=== PATIENT | female | born 1940 | race Caucasian/White ===

== ENCOUNTER 2017-09-24 09:52 | Emergency (ER) | payer MEDICARE, OTHER, MEDICAID ==
[2015-10-14 09:31] VITALS: Ht 147.3 cm; Wt 44.5 kg
[~2017-09-24] VITALS: Ht 147.3 cm; Wt 44.5 kg
[~2017-09-24 09:52] MED LIST: ATEN-1 PO; ATEN-65 PO; DIV500ER PO; GABA-549 PO; HYDR12.561 PO; LEVE500T73 PO; LEVE500T75 PO; LEVO50TA86 PO; LOSA50TA72 PO; PHEN50TA PO
[2017-09-24] MEDS ORDERED: CARB1TAB11 PO (10:14)
--- NOTE | 2017-09-24 10:21 | ER Report ---
History and Physical Time Seen By MD: 09:55 Hx. of Stated Complaint: LOWER BACK PAIN RADIATING DOWN TO RIGHT KNEE HPI/ROS CHIEF COMPLAINT: Low back and right leg pain HISTORY OF PRESENT ILLNESS: 76-year-old female long history of chronic low back pain and sciatica pain returns emergency Department today with complaint of low back pain and right lower extremity pain. Patient has no falls has been seen and evaluated as an outpatient has had physical therapy no urinary bladder bowel incontinence and numbness of subtle paresthesia. Is localized lumbar area with radiation down the right leg and to the right knee in the right foot patient has no additional complaints at this time REVIEW OF SYSTEMS: Respiratory: No cough, no dyspnea. Cardiovascular: No chest pain, no palpitations. Gastrointestinal: No vomiting, no abdominal pain. Musculoskeletal: Right low back pain right lower extremity pain Remainder of the 14 system rev: Yes Allergies: Coded Allergies: amoxicillin (Verified Allergy, Severe, rash with small blisters to right arm, 09/24/17) clavulanic acid (Verified Allergy, Severe, rash with small blisters to right arm, 09/24/17) Home Meds Active Scripts Divalproex Sodium (DIVALPROEX SODIUM ER) 500 Mg Tabsr, 500 MG PO , #60 Prov:JAMIE PEDERSON MD 06/19/15 Levetiracetam (LEVETIRACETAM) 500 Mg Tab, 1000 MG PO BID, #60 Prov:JAMIE PEDERSON MD 06/19/15 Reported Medications Carbidopa/Levodopa/Entacapone ([id number] 100 MG) 1 Each Tablet, 1 EACH PO TID 09/24/17 Atenolol (ATENOLOL) 50 Mg Tablet, 25 MG PO QHS, TAB 11/29/15 Levothyroxine Sodium (LEVOTHYROXINE SODIUM) 50 Mcg Tablet, 50 MCG PO QAM 01/31/15 Discontinued Reported Medications Gabapentin (GABAPENTIN) 300 Mg Capsule, 300 MG PO BID Y for TREMORS, CAPSULE 01/12/16 Reviewed Nurses Notes: Yes Old Medical Records Reviewed: Yes Hx Smoking: No Smoking Status: Never Smoker Exposure to Second Hand Smoke?: No Hx Substance Use Disorder: No Hx Alcohol Use: No Constitutional Vital Sign - Last 24 Hours 09/24/17 09/24/17 09/24/17 09/24/17 10:00 10:07 10:12 10:27 Temp 97.0 Pulse 76 77 ? Resp 16 B/P (MAP) 101/71 101/71 (81) Pulse Ox 94 92 O2 Delivery Room Air 09/24/17 09/24/17 09/24/17 10:34 10:42 10:57 Pulse 74 68 B/P (MAP) 129/64 (85) 123/73 (90) Pulse Ox 92 92 Physical Exam General Appearance: [The patient is alert, has no immediate need for airway protection and no current signs of toxicity.] Appears thin cachectic Eyes: Pupils equal and round no injection. Respiratory: Chest is non tender, lungs are clear to auscultation. Cardiac: regular rate and rhythm [ ] Gastrointestinal: Abdomen is soft and non tender, no masses, bowel sounds normal. Musculoskeletal: Pain with extension flexion of the right lower extremity neurovascularly intact Neck is supple and non tender. Extremities have full range of motion and are non tender. Skin: Multiple facial nevi [ ] DIFFERENTIAL DIAGNOSIS: After history and physical exam differential diagnosis was considered for sciatica acute fracture chronic with acute exacerbation of chronic condition pathologic fracture Medical Decision Making ED Course/Re-evaluation ED Course ED clinical course abusive no female with back pain history of kyphoplasty x- rays do confirm a small compression fracture of her L spine we'll start her on by mouth pain medications refer to Dr. Armijo orthopedic spinal surgery for evaluation Decision to Disposition Date: Sep 24, 2017 Decision to Disposition Time: 11:36 Depart Departure Latest Vital Signs Vital Signs Date Time Temp Pulse Resp B/P (MAP) Pulse Ox O2 Delivery O2 Flow Rate FiO2 09/24/17 10:57 68 92 09/24/17 10:42 123/73 (90) 09/24/17 10:00 97.0 16 Room Air Impression: Primary Impression: Compression fracture Condition: Improved Disposition: HOME OR SELF-CARE Referrals: SEDA CRISTINA DO (PCP) KURT ARMIJO MD 5 Days Patient Instructions: Vertebral Compression Fracture (DC) REMY VERGARA MD Sep 24, 2017 10:20
--- NOTE | 2017-09-24 11:08 | RADIOLOGY IMAGING REPORT ---
FACILITY: [facility] PATIENT NAME: Francie Ceja : 1940 MR: [id number] V: [id number] EXAM DATE: ORDERING PHYSICIAN: REMY VERGARA TECHNOLOGIST: Location: [facility] Patient: Francie Ceja : 1940 Visit/Account:[id number] Date of Sevice: 09/24/2017 Exam type: LUMBAR SPINE 2 OR 3 VIEW History: acute on chronic back pain Comparison: None. Findings: There are vertebroplasty changes seen at L1 with a moderate compression fracture. Is osteopenia seen throughout the visualized bones. This mild loss of height of the superior endplates of L2, L3 and L 4. Disc spaces are relatively well-preserved.. No subluxations identified IMPRESSION: 1. Vertebroplasty changes at L1 with moderate compression fracture Mild loss of height along the superior endplates of L2, and L4 of indeterminate age Report Dictated By: Tamie Wilcox MD at 09/24/2017 10:59 AM Report E-Signed By: Tamie Wilcox MD at 09/24/2017 11:02 AM WSN:[email or web address]
[2017-09-24 11:38] VITALS: BP 108/73
== END 2017-09-24 11:52 | disposition home or self-care (01) ==
LOC: ER 10:07
DX: S32.010A Wedge compression fracture of first lumbar vertebra, initial encounter for closed fracture (principal)
CPT/HCPCS: 72100; 99283

== ENCOUNTER 2017-09-28 09:01 | Emergency (ER) | payer MEDICARE, OTHER, MEDICAID ==
[2015-10-14 09:31] VITALS: Ht 147.3 cm; Wt 44.6 kg
[~2017-09-28] VITALS: Ht 147.3 cm; Wt 44.6 kg
[~2017-09-28 09:01] MED LIST changes: +CARB1TAB11 PO
[2017-09-28] MEDS ORDERED: NS(*) 0.9% 1000 ML BAG 1,000 ML IV ONE (09:35)
[2017-09-28 09:41] LABS: PLATELET COUNT, AUTOMATED 207 K/uL (150-450)
--- NOTE | 2017-09-28 10:45 | ER Report ---
History and Physical Time Seen By MD: 09:20 Hx. of Stated Complaint: CONSTIP[ATION X 7 DAYS HPI/ROS CHIEF COMPLAINT: Constipation HISTORY OF PRESENT ILLNESS: Patient is a 76-year-old female who was seen last week in the emergency department and diagnosed with some vertebral compression fractures and placed on oral opiate pain medications. Since that time patient has had difficulty with bowel movements and in fact has not had a bowel movement in the last 8-10 days. She denies any nausea or vomiting. She denies fevers or chills. Patient denies any prior abdominal surgeries. Patient has no difficulty with urination. Appetite has decreased over the past few days. REVIEW OF SYSTEMS: Respiratory: No cough, no dyspnea. Cardiovascular: No chest pain, no palpitations. Gastrointestinal: No vomiting, generalized abdominal cramping and constipation Musculoskeletal: Back pain from a recent injury Allergies: Coded Allergies: amoxicillin (Verified Allergy, Severe, rash with small blisters to right arm, 09/28/17) clavulanic acid (Verified Allergy, Severe, rash with small blisters to right arm, 09/28/17) Home Meds Active Scripts Divalproex Sodium (DIVALPROEX SODIUM ER) 500 Mg Tabsr, 500 MG PO , #60 Prov:JAMIE PEDERSON MD 06/19/15 Levetiracetam (LEVETIRACETAM) 500 Mg Tab, 1000 MG PO BID, #60 Prov:JAMIE PEDERSON MD 06/19/15 Reported Medications Carbidopa/Levodopa/Entacapone ([id number] 100 MG) 1 Each Tablet, 1 EACH PO TID 09/24/17 Atenolol (ATENOLOL) 50 Mg Tablet, 25 MG PO QHS, TAB 11/29/15 Levothyroxine Sodium (LEVOTHYROXINE SODIUM) 50 Mcg Tablet, 50 MCG PO QAM 01/31/15 Discontinued Reported Medications Gabapentin (GABAPENTIN) 300 Mg Capsule, 300 MG PO BID Y for TREMORS, CAPSULE 01/12/16 Hx Smoking: No Smoking Status: Never Smoker Exposure to Second Hand Smoke?: No Hx Substance Use Disorder: No Hx Alcohol Use: No Constitutional Vital Sign - Last 24 Hours 09/28/17 09/28/17 09/28/17 09/28/17 09:08 09:09 10:00 11:43 Temp 98.9 Pulse 89 84 Resp 18 18 B/P (MAP) 150/65 150/65 (93) 124/76 (92) 147/73 (97) Pulse Ox 93 92 O2 Delivery Room Air Room Air Physical Exam General Appearance: The patient is alert, has no immediate need for airway protection and no current signs of toxicity. Eyes: Pupils equal and round no injection. Respiratory: Chest is non tender, lungs are clear to auscultation. Cardiac: regular rate and rhythm Gastrointestinal: Abdomen is soft and non tender, no masses, bowel sounds normal. Musculoskeletal: Neck: Neck is supple and non tender. Extremities have full range of motion and are non tender. Skin: No rashes or lesions. Medical Decision Making Data Points Result Diagram: 09/28/17 0933 09/28/17 0933 Laboratory Hematology Test 09/28/17 09:33 Red Blood Count 4.77 M/uL (4.17-5.56) Mean Corpuscular Volume 84.6 fL (80.0-96.0) Mean Corpuscular Hemoglobin 28.1 pg (26.0-33.0) Mean Corpuscular Hemoglobin Concent 33.1 g/dL (32.0-36.0) Red Cell Distribution Width 13.8 % (11.5-14.5) Mean Platelet Volume 8.4 fL (7.2-11.1) Neutrophils (%) (Auto) 77.2 % (39.4-72.5) Lymphocytes (%) (Auto) 9.9 % (17.6-49.6) Monocytes (%) (Auto) 11.2 % (4.1-12.4) Eosinophils (%) (Auto) 1.3 % (0.4-6.7) Basophils (%) (Auto) 0.4 % (0.3-1.4) Nucleated RBC Relative Count (auto) 0.0 /100WBC Neutrophils # (Auto) 7.0 K/uL (2.0-7.4) Lymphocytes # (Auto) 0.9 K/uL (1.3-3.6) Monocytes # (Auto) 1.0 K/uL (0.3-1.0) Eosinophils # (Auto) 0.1 K/uL (0.0-0.5) Basophils # (Auto) 0.0 K/uL (0.0-0.1) Nucleated RBC Absolute Count (auto) 0.00 K/uL Sodium Level 139 mmol/L (137-145) Potassium Level 3.6 mmol/L (3.5-5.0) Chloride Level 100 mmol/L (98-107) Carbon Dioxide Level 29 mmol/L (22-31) Blood Urea Nitrogen 17 mg/dl (7-18) Creatinine 0.70 mg/dl (0.52-1.04) Glomerular Filtration Rate Calc > 60.0 Random Glucose 96 mg/dl (75-110) Calcium Level 9.3 mg/dl (8.4-10.2) Magnesium Level 2.0 mg/dl (1.7-2.2) Chemistry Test 09/28/17 09:33 White Blood Count 9.0 k/uL (4.5-11.0) Red Blood Count 4.77 M/uL (4.17-5.56) Hemoglobin 13.4 g/dL (12.0-16.0) Hematocrit 40.4 % (34.0-47.0) Mean Corpuscular Volume 84.6 fL (80.0-96.0) Mean Corpuscular Hemoglobin 28.1 pg (26.0-33.0) Mean Corpuscular Hemoglobin Concent 33.1 g/dL (32.0-36.0) Red Cell Distribution Width 13.8 % (11.5-14.5) Platelet Count 207 K/uL (150-450) Mean Platelet Volume 8.4 fL (7.2-11.1) Neutrophils (%) (Auto) 77.2 % (39.4-72.5) Lymphocytes (%) (Auto) 9.9 % (17.6-49.6) Monocytes (%) (Auto) 11.2 % (4.1-12.4) Eosinophils (%) (Auto) 1.3 % (0.4-6.7) Basophils (%) (Auto) 0.4 % (0.3-1.4) Nucleated RBC Relative Count (auto) 0.0 /100WBC Neutrophils # (Auto) 7.0 K/uL (2.0-7.4) Lymphocytes # (Auto) 0.9 K/uL (1.3-3.6) Monocytes # (Auto) 1.0 K/uL (0.3-1.0) Eosinophils # (Auto) 0.1 K/uL (0.0-0.5) Basophils # (Auto) 0.0 K/uL (0.0-0.1) Nucleated RBC Absolute Count (auto) 0.00 K/uL Glomerular Filtration Rate Calc > 60.0 Calcium Level 9.3 mg/dl (8.4-10.2) Magnesium Level 2.0 mg/dl (1.7-2.2) ED Course/Re-evaluation Clinical Indication for ER IV: Hydration, IV Access ED Course 09/28/2017 10:45:09 am Plan at this time will to be check a CBC and electrolytes, also will check acute abdominal series. We'll administer a soapsuds enema. Re-evaluation 09/28/2017 11:32:53 am Patient had bowel movement in the emergency department. We'll have her continue her stool regimen. Decision to Disposition Date: Sep 28, 2017 Decision to Disposition Time: 11:39 Depart Departure Latest Vital Signs Vital Signs Date Time Temp Pulse Resp B/P (MAP) Pulse Ox O2 Delivery O2 Flow Rate FiO2 09/28/17 11:43 84 18 147/73 (97) 92 Room Air 09/28/17 09:08 98.9 Impression: Primary Impression: Constipation by delayed colonic transit Condition: Improved Disposition: HOME OR SELF-CARE Referrals: SEDA CRISTINA DO (PCP) 2 Days Patient Instructions: Constipation (ED) Additional Instructions: Try to decrease the frequency or taking her opiate pain medication Continue your stool softeners Follow-up with Dr. Armijo this Friday for evaluation of your vertebral fracture CHANTEL CRAMER MD Sep 28, 2017 10:45
--- NOTE | 2017-09-28 11:10 | RADIOLOGY IMAGING REPORT ---
FACILITY: [facility] [place] PATIENT NAME: Francie Ceja : 1940 MR: [id number] V: [id number] EXAM DATE: ORDERING PHYSICIAN: CHANTEL CRAMER TECHNOLOGIST: Location: [facility] Patient: Francie Ceja : 1940 Visit/Account:[id number] Date of Sevice: 09/28/2017 Exam type: ACUTE ABDOMEN SERIES 3 VIEW INDICATION: Constipation. COMPARISON: Unavailable FINDINGS: Heart size within normal limits. There is no focal infiltrate or consolidation. No evidence of pneumothorax or pleural effusion. Large volume stool throughout the colon and rectum. No visualized pathologic calcifications. Vertebro plasty/kyphoplasty changes identified within the L1 vertebral body. IMPRESSION: 1. Large volume stool within the colon and rectum. 2. No acute cardiopulmonary findings. Report Dictated By: Paco Tavarez MD at 09/28/2017 11:05 AM Report E-Signed By: Paco Tavarez MD at 09/28/2017 11:06 AM WSN:[id number]
[2017-09-28 11:43] VITALS: BP 147/73
== END 2017-09-28 12:06 | disposition home or self-care (01) ==
LOC: ER 09:19
DX: K59.01 Slow transit constipation (principal)
CPT/HCPCS: 74022; 83735; 85025; 99284; J7030; 82310; 82374; 82435; 82565; 82947; 84132; 84295; 84520; 96360

== ENCOUNTER → 2017-10-13 | Outpatient (CLI) | payer MEDICARE, OTHER, MEDICAID ==
[2015-10-14 09:31] VITALS: BMI 32.8
--- NOTE | 2017-10-13 13:39 | RADIOLOGY IMAGING REPORT ---
FACILITY: [facility] PATIENT NAME: Francie Ceja : 1940 MR: [id number] V: [id number] EXAM DATE: ORDERING PHYSICIAN: SEDA CRISTINA TECHNOLOGIST: Location: [facility] [place] Patient: Francie Ceja : 1940 Visit/Account:[id number] Date of Sevice: 10/13/2017 DEXA Scan Clinical history: Osteoporosis. Comparison: DEXA scan from 11/22/2014. LUMBAR SPINE: The bone mineral density (BMD) measured from L2-L4 correlates with a Z-score of -1 and a T-score of - 3 which is osteoporosis as defined by the World Health Organization. The corresponding risk of fract ure in the lumbar spine is 8 times increased compared with a young adult reference population. This value has decrease by 12.2 % since the prior study. More than 5% change is considered significant. HIP: Bone mineral density (BMD) measured in the LEFT total hip region correlates with a Z-score -1.2 and a T-score of -3.2 which is osteoporosis as defined by the World Health Organization. The correspondin g risk of fracture in the hip is a to 12 times increased compared to a young adult reference populati on. This value has decrease by 28.9 % since the prior study. More than 5% change is considered signi ficant. T score left femoral neck -2.9 Bone mineral density (BMD) measured in the Femoral Neck region measures 0.640 g/cm?. IMPRESSION: 1. Lumbar spine: Acute process. There has been 12.2% decrease in the bone mineral density since the previous exam. 2. Left Total Hip: Osteoporosis. There has been 28.9% decrease in the bone mineral density since th e previous exam. 3. Femoral Neck: Bone Mineral Density is 0.640 g/cm? The next DEXA scan of this patient should include the following sites: L1-L4 and the left hip. FRAX? WHO Fracture Risk Assessment Tool link: <http://www.shef.ac.uk/FRAX/tool.jsp?locationValue=9> PLEASE NOTE: 1) The World Health Organization defines low BMD as follows: T-score Normal > -1 Osteopenia < -1 and > -2.5 Osteoporosis < -2.5 without fractures Established osteoporosis < -2.5 with fractures 2) In general, you may wish to consider: Diagnosis Treatment Follow-up DEXA Normal BMD Prevention 2-3 years Osteopenia Prevention/therapy 1-2 years Osteoporosis Therapy Yearly 3) Fracture risk estimated from the T-score is more accurate for vertebral fractures (often spontane ous) than for hip fractures. Report Dictated By: Tamie Wilcox MD at 10/13/2017 1:33 PM Report E-Signed By: Tamie Wilcox MD at 10/13/2017 1:35 PM WSN:[email or web address]
== END ==
LOC: RAD 01:59
PROVIDERS: ATTEND Family Medicine
DX: M81.0 Age-related osteoporosis without current pathological fracture (principal)
CPT/HCPCS: 77080

== ENCOUNTER → 2017-11-12 | Outpatient (CLI) | payer MEDICARE, OTHER, MEDICAID ==
[2015-10-14 09:31] VITALS: BMI 32.8
[~2017-11-12] MED LIST changes: +DENOSUMAB 60 MG/1 ML SYR SUBQ ONE
[2017-11-12 10:24] VITALS: BP 123/73
== END ==
LOC: SPU 07:42
PROVIDERS: ATTEND Family Medicine
DX: M81.8 Other osteoporosis without current pathological fracture (principal)
CPT/HCPCS: 96372; J0897

== ENCOUNTER 2017-11-24 13:15 | Emergency (ER) | payer MEDICARE, OTHER, MEDICAID ==
[2015-10-14 09:31] VITALS: Wt 44.5 kg
[~2017-11-24 13:15] MED LIST changes: -DENOSUMAB 60 MG/1 ML SYR SUBQ ONE
--- NOTE | 2017-11-24 13:29 | ER Report ---
History and Physical Time Seen By MD: 13:29 Hx. of Stated Complaint: patients states that she has had chest pain since friday, 06/24, states that she states that when you touch her chest it starts to hurt; pain has gotten worse since friday. Home ema nurse called and stated that she would be coming in via HPI/ROS CHIEF COMPLAINT: Chest pain HISTORY OF PRESENT ILLNESS: 77-year-old female patient presents to emergency room with complaint of chest pain. Patient states this been going on since Friday. She said pain seems to be right at the sternum. She states is very tender to touch. States there is nothing seems to make the pain better or worse. She states that she has not taken any medication for this. She states the pain is a 10 out of 10. She denies having any fevers, cough, chills, nausea , vomiting or diarrhea. He denies seeing any rash. Patient does have a history of a herpes zoster vaccine. REVIEW OF SYSTEMS: Respiratory: No cough, no dyspnea. Cardiovascular: As noted above. Gastrointestinal: No vomiting, no abdominal pain. Musculoskeletal: No back pain. Allergies: Coded Allergies: amoxicillin (Verified Allergy, Severe, rash with small blisters to right arm, 11/24/17) clavulanic acid (Verified Allergy, Severe, rash with small blisters to right arm, 11/24/17) Home Meds Active Scripts Lidocaine (Lidocaine) 5 % Adh..patch, 1 PATCH TP DAILY Y for PAIN, #[address] in the morning to the area of pain and then take off 12 hours later. Prov:RAPHAEL BROOKS 11/24/17 Valacyclovir Hcl (VALTREX) 1,000 Mg Tablet, 1000 MG PO TID, #21 TAB Prov:RAPHAEL BROOKS 11/24/17 Divalproex Sodium (DIVALPROEX SODIUM ER) 500 Mg Tabsr, 500 MG PO , #60 Prov:JAMIE PEDERSON MD 06/19/15 Levetiracetam (LEVETIRACETAM) 500 Mg Tab, 1000 MG PO BID, #60 Prov:JAMIE PEDERSON MD 06/19/15 Reported Medications Carbidopa/Levodopa/Entacapone (HAHOGICTT-HOIILHRK-DWBT 100 MG) 1 Each Tablet, 1 EACH PO TID 09/24/17 Atenolol (ATENOLOL) 50 Mg Tablet, 25 MG PO QHS, TAB 11/29/15 Levothyroxine Sodium (LEVOTHYROXINE SODIUM) 50 Mcg Tablet, 50 MCG PO QAM 01/31/15 Past Medical/Surgical History Patient has a past medical history of polio, Parkinson's, seizures, hypertension , hard of hearing, hypothyroidism. Patient has surgical history of hysterectomy, back surgery, bilateral cataract surgery Reviewed Nurses Notes: Yes Hx Smoking: No Smoking Status: Never Smoker Exposure to Second Hand Smoke?: No Hx Substance Use Disorder: No Hx Alcohol Use: No Constitutional Vital Sign - Last 24 Hours 11/24/17 11/24/17 11/24/17 11/24/17 13:22 13:22 13:30 13:45 Temp 97.8 Pulse 73 68 Resp 18 10 B/P (MAP) 149/79 (102) 149/79 117/67 (84) Pulse Ox 96 96 O2 Delivery Room Air 11/24/17 11/24/17 11/24/17 11/24/17 14:00 14:15 14:30 14:45 Pulse 71 63 Resp 14 B/P (MAP) 114/64 (81) 123/108 (113) Pulse Ox 96 97 11/24/17 15:00 B/P (MAP) 136/111 (119) Physical Exam General Appearance: The patient is alert, has no immediate need for airway protection and no current signs of toxicity. ENT: Tympanic membranes are pearly-thompson, auditory canals are patent, mixed mucous membranes are moist. Respiratory: Chest is tender to palpation across the sternum, there is no tenderness to the right of the left., lungs are clear to auscultation. Cardiac: regular rate and rhythm Gastrointestinal: Abdomen is soft and non tender, no masses, bowel sounds normal. Musculoskeletal: Neck: Neck is supple and non tender. Extremities have full range of motion and are non tender. Skin: No rashes or lesions. DIFFERENTIAL DIAGNOSIS: After history and physical exam differential diagnosis was considered for chest pain including but not limited to myocardial ischemia, pericarditis pulmonary embolus, chest wall pain, pleural inflammation and pulmonary infectious causes. Included in this differential is herpes zoster. Medical Decision Making Data Points Result Diagram: 11/24/17 1410 11/24/17 1410 Laboratory Hematology Test 11/24/17 14:10 Red Blood Count 4.86 M/uL (4.17-5.56) Mean Corpuscular Volume 84.8 fL (80.0-96.0) Mean Corpuscular Hemoglobin 27.8 pg (26.0-33.0) Mean Corpuscular Hemoglobin Concent 32.8 g/dL (32.0-36.0) Red Cell Distribution Width 15.4 % (11.5-14.5) Mean Platelet Volume 7.8 fL (7.2-11.1) Neutrophils (%) (Auto) 62.4 % (39.4-72.5) Lymphocytes (%) (Auto) 25.0 % (17.6-49.6) Monocytes (%) (Auto) 8.5 % (4.1-12.4) Eosinophils (%) (Auto) 2.8 % (0.4-6.7) Basophils (%) (Auto) 1.3 % (0.3-1.4) Nucleated RBC Relative Count (auto) 0.0 /100WBC Neutrophils # (Auto) 4.7 K/uL (2.0-7.4) Lymphocytes # (Auto) 1.9 K/uL (1.3-3.6) Monocytes # (Auto) 0.6 K/uL (0.3-1.0) Eosinophils # (Auto) 0.2 K/uL (0.0-0.5) Basophils # (Auto) 0.1 K/uL (0.0-0.1) Nucleated RBC Absolute Count (auto) 0.00 K/uL Sodium Level 142 mmol/L (137-145) Potassium Level 4.5 mmol/L (3.5-5.0) Chloride Level 105 mmol/L (98-107) Carbon Dioxide Level 26 mmol/L (22-31) Blood Urea Nitrogen 19 mg/dl (7-18) Creatinine 0.60 mg/dl (0.52-1.04) Glomerular Filtration Rate Calc > 60.0 Random Glucose 85 mg/dl (75-110) Calcium Level 8.7 mg/dl (8.4-10.2) Total Bilirubin 0.3 mg/dl (0.2-1.3) Aspartate Amino Transf (AST/SGOT) 21 U/L (0-35) Alanine Aminotransferase (ALT/SGPT) 20 U/L (0-56) Alkaline Phosphatase 173 U/L (0-126) Troponin I < 0.012 ng/ml Total Protein 7.7 gm/dl (6.3-8.2) Albumin 3.6 g/dl (3.5-5.0) Chemistry Test 11/24/17 14:10 White Blood Count 7.5 k/uL (4.5-11.0) Red Blood Count 4.86 M/uL (4.17-5.56) Hemoglobin 13.5 g/dL (12.0-16.0) Hematocrit 41.2 % (34.0-47.0) Mean Corpuscular Volume 84.8 fL (80.0-96.0) Mean Corpuscular Hemoglobin 27.8 pg (26.0-33.0) Mean Corpuscular Hemoglobin Concent 32.8 g/dL (32.0-36.0) Red Cell Distribution Width 15.4 % (11.5-14.5) Platelet Count 305 K/uL (150-450) Mean Platelet Volume 7.8 fL (7.2-11.1) Neutrophils (%) (Auto) 62.4 % (39.4-72.5) Lymphocytes (%) (Auto) 25.0 % (17.6-49.6) Monocytes (%) (Auto) 8.5 % (4.1-12.4) Eosinophils (%) (Auto) 2.8 % (0.4-6.7) Basophils (%) (Auto) 1.3 % (0.3-1.4) Nucleated RBC Relative Count (auto) 0.0 /100WBC Neutrophils # (Auto) 4.7 K/uL (2.0-7.4) Lymphocytes # (Auto) 1.9 K/uL (1.3-3.6) Monocytes # (Auto) 0.6 K/uL (0.3-1.0) Eosinophils # (Auto) 0.2 K/uL (0.0-0.5) Basophils # (Auto) 0.1 K/uL (0.0-0.1) Nucleated RBC Absolute Count (auto) 0.00 K/uL Glomerular Filtration Rate Calc > 60.0 Calcium Level 8.7 mg/dl (8.4-10.2) Total Bilirubin 0.3 mg/dl (0.2-1.3) Aspartate Amino Transf (AST/SGOT) 21 U/L (0-35) Alanine Aminotransferase (ALT/SGPT) 20 U/L (0-56) Alkaline Phosphatase 173 U/L (0-126) Troponin I < 0.012 ng/ml Total Protein 7.7 gm/dl (6.3-8.2) Albumin 3.6 g/dl (3.5-5.0) EKG/Imaging EKG Interpretation 12 lead EKG: Rhythm: normal sinus rhythm with ventricular rate of 71 bpm [place]: normal QRS: normal ST segments: normal Imaging Exam type: CHEST PA AND LAT History: Chest Pain Comparison: PA and lateral chest January 27, 2016., Lumbar spine September 24, 2017 Findings: The lungs are free of acute effusions, infiltrates or edema. There is no evidence of a pneumothorax or pneumomediastinum. The cardiac silhouette is normal in size. There are vertebroplasty changes at L1 again noted. There is a severe compression fracture of L3 which has increased in severity when compared the prior lumbar spine series of September 24, 2017 IMPRESSION: 1. No acute cardiopulmonary process is seen Severe compression fracture of L3 has advanced when compared to the prior lumbar spine series from September 24, 2017 Report Dictated By: Tamie Wilcox MD at 11/24/2017 3:23 PM Report E-Signed By: Tamie Wilcox MD at 11/24/2017 3:27 PM ED Course/Re-evaluation ED Course Patient was admitted to an exam room, history and physical were obtained. Differential diagnoses were considered. On examination patient has significant tenderness to the sternum. Patient didn't have any tenderness to either side of the sternum. A workup for an MT was done including a CBC, CMP, troponin, EKG, chest x-ray. After my evaluation I did order Lidoderm patch be placed on the chest. Following the results of the workup which included a negative troponin, CBC and CMP which were unremarkable and a normal EKG. Chest x-ray was unremarkable. I did reevaluate the patient. She states she had significant improvement in her pain with the Lidoderm patch. I believe that the underlying cause of this is herpes zoster. We'll go ahead and treat her with Valtrex 1 g 3 times a day for 7 days as well as Lidoderm patches to the chest. I discussed this with the patient and her they verbalized understanding and agreement. Decision to Disposition Date: Nov 24, 2017 Decision to Disposition Time: 15:46 Depart Departure Latest Vital Signs Vital Signs Date Time Temp Pulse Resp B/P (MAP) Pulse Ox O2 Delivery O2 Flow Rate FiO2 11/24/17 15:00 136/111 (119) 11/24/17 14:45 63 97 11/24/17 14:15 14 11/24/17 13:22 97.8 Room Air Impression: Primary Impression: Herpes zoster Condition: Improved Referrals: SEDA CRISTINA DO (PCP) New Scripts Lidocaine (Lidocaine) 5 % Adh..patch 1 PATCH TP DAILY Y for PAIN, #[address] in the morning to the area of pain and then take off 12 hours later. Prov: RAPHAEL BROOKS 11/24/17 Valacyclovir Hcl (VALTREX) 1,000 Mg Tablet 1000 MG PO TID, #21 TAB Prov: RAPHAEL BROOKS 11/24/17 Patient Instructions: Shingles (ED) Additional Instructions: Increase fluid intake. Get plenty of rest. Follow up with your primary care provider in the next week. Return to the ER if condition worsens. Limit activity by pain. Problem Qualifiers Primary Impression: Herpes zoster Herpes zoster complications: without complications Qualified Codes: B02.9 - Zoster without complications RAPHAEL BROOKS Nov 24, 2017 13:29
[2017-11-24] MEDS ORDERED: ASPIRIN 81 MG CHEW PO ONE (13:55)
--- NOTE | 2017-11-24 14:05 | EKG ---
FACILITY: [facility] - [place] PATIENT NAME: EBONIE MATIAS : [id number] MR: [id number] V: [id number] EXAM DATE: ORDERING PHYSICIAN: RAPHAEL BROOKS TECHNOLOGIST: ANTON Test Reason : CP Blood Pressure : / mmHG Vent. Rate : 071 BPM Atrial Rate : 071 BPM P-R Int : 154 ms QRS Dur : 076 ms QT Int : 406 ms P-R-T Axes : 066 -29 015 degrees QTc Int : 441 ms Sinus rhythm Artifact in limb leads - recommend repeat EKG T wave inversion anteriorly Abnormal ECG Confirmed by MELLISA LEONG ([id number]) on 11/24/2017 3:55:58 PM Referred By: DAVIS Confirmed By:MELLISA LEONG
[2017-11-24] MEDS ORDERED: LIDOCAINE 5% PATCH TP SCH (14:20)
[2017-11-24 14:22] LABS: PLATELET COUNT, AUTOMATED 305 K/uL (150-450)
[2017-11-24 15:00] VITALS: BP 136/111
--- NOTE | 2017-11-24 15:32 | RADIOLOGY IMAGING REPORT ---
FACILITY: [facility] - [place] PATIENT NAME: Francie Ceja : 1940 MR: [id number] V: [id number] EXAM DATE: ORDERING PHYSICIAN: RAPHAEL BROOKS TECHNOLOGIST: Location: [facility] - [place] Patient: Francie Ceja : 1940 Visit/Account:[id number] Date of Sevice: 11/24/2017 Exam type: CHEST PA AND LAT History: Chest Pain Comparison: PA and lateral chest January 27, 2016., Lumbar spine September 24, 2017 Findings: The lungs are free of acute effusions, infiltrates or edema. There is no evidence of a pneumothorax or pneumomediastinum. The cardiac silhouette is normal in size. There are vertebroplasty changes at L1 again noted. There is a severe compression fracture of L3 which has increased in severity when c ompared the prior lumbar spine series of September 24, 2017 IMPRESSION: 1. No acute cardiopulmonary process is seen Severe compression fracture of L3 has advanced when compared to the prior lumbar spine series from [facility] 2017 Report Dictated By: Tamie Wilcox MD at 11/24/2017 3:23 PM Report E-Signed By: Tamie Wilcox MD at 11/24/2017 3:27 PM WSN:[id number]
[2017-11-24] MEDS ORDERED: VALA100062 PO (15:45)
[2017-11-24] MEDS ORDERED: LIDO700A19 TP (15:45)
[2017-11-24] MEDS ORDERED: PATCH REMOVAL 1 EA TOP SCH (21:00)
== END 2017-11-24 16:06 | disposition home or self-care (01) ==
LOC: ER 13:32
DX: B02.9 Zoster without complications (principal)
CPT/HCPCS: 71046; 84484; 85025; 93005; 99284; A9270; 82040; 82247; 82310; 82374; 82435; 82565; 82947; 84075; 84132; 84155; 84295; 84450; 84460; 84520

== ENCOUNTER → 2018-05-13 | Outpatient (CLI) | payer MEDICARE, OTHER, MEDICAID ==
[2015-10-14 09:31] VITALS: BMI 32.8
[~2018-05-13] MED LIST changes: +DENOSUMAB 60 MG/1 ML SYR SUBQ ONE; +LIDO700A19 TP; +VALA100062 PO
[2018-05-13 11:16] VITALS: BP 106/76
== END ==
LOC: SPU 10:58
PROVIDERS: ATTEND Family Medicine
DX: M81.8 Other osteoporosis without current pathological fracture (principal)
CPT/HCPCS: 96372; J0897

== ENCOUNTER → 2018-11-11 | Outpatient (CLI) | payer MEDICARE, OTHER, MEDICAID ==
[2015-10-14 09:31] VITALS: BMI 32.8
[~2018-11-11] MED LIST changes: -LEVE500T75 PO; +LEVE500T9 PO; -LOSA50TA72 PO; +LOSA50TA80 PO
== END ==
LOC: SPU 11:51
PROVIDERS: ATTEND Family Medicine
DX: M81.8 Other osteoporosis without current pathological fracture (principal)
CPT/HCPCS: 96372; J0897